=== PATIENT | female | born 1980 | race Asian ===

== ENCOUNTER 2021-11-30 15:54 | Emergency (ER) | payer MEDICAID ==
[~2021-11-30] VITALS: Ht 142.2 cm; Wt 47.6 kg
[2021-12-01 09:17] VITALS: BP_SYST 102
== END 2021-12-01 09:17 | disposition home or self-care (01) ==
LOC: SED 15:54
DX: K21.9 Gastro-esophageal reflux disease without esophagitis (principal); E03.9 Hypothyroidism, unspecified; Z45.2 Encounter for adjustment and management of vascular access device; Z79.899 Other long term (current) drug therapy
CPT/HCPCS: 71045; 99285